=== PATIENT | female | born 1970 | race Caucasian/White ===

== ENCOUNTER 2023-12-20 11:14 | Outpatient (CLI) | payer OTHER, SELFPAY ==
--- NOTE | ~2023-12-20 | XR_ITS ---
XR chest 2V 12/20/2023 11:45 Indication: Dyspnea Procedure: 2 view chest Comparison: No prior studies for comparison. Findings: Heart size normal. No focal air space disease, pulmonary edema, pleural effusion or suspect ed pneumothorax. Impression: 1: No acute cardiopulmonary disease. Reviewed, dictated and finalized at location L. Impression: 1: No acute cardiopulmonary disease.
== END 2023-12-20 11:15 | disposition home or self-care (01) ==
LOC: CHSIMG 11:25
PROVIDERS: PCP Physician Assistant; Visit Provider Physician Assistant
DX: J20.8 Acute bronchitis due to other specified organisms (principal)
CPT/HCPCS: 71046

== ENCOUNTER 2024-12-28 11:53 | Emergency (ER) | payer OTHER, SELFPAY ==
[2024-12-28] VITALS (22 sets, daily range): BP systolic 132–161; BP diastolic 83–105; PULSE 67–98; RESP 13–21; TEMP 36.3; O2SAT 92–100
--- NOTE | ~2024-12-28 | XR_ITS ---
XR chest 1V portable Ordering provider: Kodak Servin MD History: 54 years Female with . Chest pain x5 days . Comparison: December 20, 2023 FINDINGS: MEDIASTINUM: The cardiac silhouette is not enlarged. LUNGS: No infiltrates, effusions or pneumothorax. OTHER: No free air under the diaphragm. IMPRESSION: No acute cardiopulmonary pathology. Reviewed, dictated and finalized at location A.
--- OUTSIDE RECORDS SUMMARY | 2024-12-28 11:56 | XMS_ITS | Continuity of Care Document ---
Author Organization [facility] Address [address] [place] [address] Phone Care Team Providers Care Hall Worker Name Role Phone Crescencio Russell MD Unavailable Unavailable Advance Directives Directive Yes / No Effective Date File Name No Information Encounters Encounter Description Practice Location Reason(s) For Visit Diagnoses Date Provider Providers Copied on Encounter [facility], [address], [place], [place], [id number], [place] tel:[phone] [facility] No Information Drew Prather. [address], [place], [place], [address], [place]. tel:[phone] Referring Provider: Juju Quiñones, [address], [place], [address]. tel:[phone] Family History Family Member Type Diagnosis Age At Onset No Information Payers Payer name Insurance type Covered republican ID Authoriza lucas(s) MADAI DEUTSCH [id number] Social History Type Description Quantity Date Captured Comments Sex Female Smoking Status No Information Chief Complaint And Reason For Visit No Information Reason For Referral Reason For Referral No Information History Of Present Illness Encounter Date Complaint History Of Prese nt Illness No Information Functional Status Date Functional Assessmen t No Information Instructions Date Instruction Additional Infor mation No Information Assessments Type Assessment Date No Information Patient Care Teams Name Effective Dates (start - stop) Status Members No Information
--- OUTSIDE RECORDS SUMMARY | 2024-12-28 11:56 | XMS_ITS | Encounter Summary ---
Author Organization [facility] Address [address] [place] [address] Care Team Providers Care Hog Confinement System Manager Name Role Phone Crescencio Saavedra Primary Care Provider [phone] Encounter Details Date Type Department Care Team (Late st Contact Info) Description 03/01/2019 Abstract SFL CONVERSION [address] [place] [address] , Generic Conversion, Social History Tobacco Use Types Packs/Day Years Used Date Smoking Tobacco: Never Assessed Comments Unknown Sex and Gender Information Value Date Recorded Sex Assigned at Not on file 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
--- OUTSIDE RECORDS SUMMARY | 2024-12-28 11:56 | XMS_ITS | Clinical Summary ---
Author Organization [facility] Address [address] [place] [address] Care Team Providers Care Leisure Studies Professor Name Role Phone Crescencio Saavedra Primary Care Provider [phone] Allergies Active Allergy Reactions Criticality Noted Date Comments Penicillins GI Bleed 04/13/2021 Sulfa Antibiotics Rash Low 04/13/2021 Citrullus Vulgaris Rash Low 04/13/2021 Medications FLUoxetine 10 MG tablet Take 1 tablet (10 mg total) by mouth daily. Active omeprazole 20 MG capsule Take 1 capsule (20 mg total) by mouth daily. Active budesonide-formoter ol 160-4.5 MCG/ACT inhaler Inhale 2 puffs into the lungs 2 (two) times daily. Active lisinopril 20 MG tablet Take 1 tablet (20 mg total) by mouth daily. 0 Active ibuprofen 800 MG tablet TAKE 1 TABLET BY MOUTH THREE TIMES A DAY FOR 30 DAYS 0 Active ondansetron 4 MG disintegrating tablet Take 1 tablet (4 mg total) by mouth every 8 (eight) hours as needed for Nausea. 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 Gender Identity Not on file Sexual Orientation Not on file Last Filed Vital Signs Vital Sign Reading Time Taken Comments Blood Pressure 173/114 07/28/2024 11:23 AM GRAVE DIGGER Pulse 96 07/28/2024 11:23 AM GRAVE DIGGER Temperature 36.9 C (98.5 F) 07/28/2024 10:41 AM GRAVE DIGGER Respiratory Rate 18 07/28/2024 11:23 AM GRAVE DIGGER Oxygen Saturation 96% 07/28/2024 11:23 AM GRAVE DIGGER Inhaled Oxygen Concentration - - Weight 51.3 kg (113 lb) 07/28/2024 10:41 AM GRAVE DIGGER Height 154.9 cm (5' 1 ) 07/28/2024 10:41 AM GRAVE DIGGER Body Mass Index 21.35 07/28/2024 10:41 AM GRAVE DIGGER Plan of Treatment Health Maintenance Due Date Last Done Comments Cervical Cancer Screening Pa p Smear (Age 30 to 64) Every 3 Years 1968 Colorectal Cancer Screening Colonoscopy (10 Years) 1968 Annual Physical 1971 Pneumococcal Vaccine: Pediat rics (0 to 5 Years) and At-Risk Patients (6 to 64 Years) (1 of 2 - PCV) 1974 Hepatitis C 1986 DTaP, Tdap and Td Vaccines ( 1 - Tdap) 1987 Hepatitis B Vaccines (1 of 3 - 19+ 3-dose series) 1987 Cervical Cancer Screening Pa p with HPV Testing (Age 30 to 64) Every 5 Years 1998 Cervical Cancer Screening with HPV 1998 Mammogram Screening 2008 Zoster Vaccines (1 of 2) 2018 COVID-19 Vaccine (2 - 2023-2 5 season) 2024 12/17/2020 Meningococcal B Vaccine Aged Out No l onger eligible based on patient's age to complete this topic Meningococcal Vaccine Aged Out No elaine cornell eligible based on patient's age to complete this topic RSV Immunizations Under 20 Months Aged Out No longer eligible based on patient's age to complete this topic Insurance NORMA Care Teams Leisure Studies Professor Relationship Specialty Start Date End Date Crescencio Saavedra PA [address] [place] [address] PCP - General PHYSICIAN MILLING MACHINE TENDER 06/12/19
--- NOTE | 2024-12-28 12:02 | ECG_ITS ---
Test Date: 2024-12-28 11:58:16 Measurements Intervals [place] Rate: 93 P: 59 WV: 127 QRS: 67 QRSD: 90 T: 72 QT: 356 QTc: 444 Interpretive Statements SINUS RHYTHM POSSIBLE LEFT ATRIAL ENLARGEMENT BORDERLINE R WAVE PROGRESSION, ANTERIOR LEADS BORDERLINE T WAVE ABNORMALITY- ANTERIOR LEADS BASELINE ARTIFACT- I, II, III, AVR, AVL, AVF BORDERLINE ECG No previous ECG available for comparison Electronically Signed On 12-29-2024 06:23:32 CDT by Deep Elaine D.O.
--- NOTE | 2024-12-28 12:03 | ED_ITS ---
HPI - Chest Pain General Chief Complaint: Chest Pain Stated Complaint: chest pain Time Seen by Provider: 12/28/24 12:01 Source: patient and family Mode of arrival: ambulatory Limitations: no limitations History of Present Illness HPI narrative: patient is a 54-year-old female with left-sided chest pain that radiates to the left arm for the past 5 days. 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 She said it hurts when she moves the arms. There is also other aches and pains such as lower back pain and headache and neck pains but they have been going on for a while. She has significant fatigue over the past few months. chest pain comes and goes over the past 5 days. It is sharp pain. MD complaint: chest pain Pertinent past history: other ( Hypertension, hyperlipidemia, GERD) Onset (ago): day(s) ( 5) Timing of current episode: episodic Prior episodes: No Onset: during rest and during exertion Pain location: substernal and left chest Pain radiation: left arm, back ( Lower back) and neck ( cervical neck pains) Severity: moderate Pain scale (0-10): 4 Quality: tightness and sharp Relieving factors: nothing Exacerbating factors: palpation, movement and stress Context: other ( patient having progressively worse left-sided chest pain that radiates to the left arm after she started doing laundry services with her job) Associated symptoms: other ( fatigue, multiple aches and pains) Treatment prior to arrival: none Risk Factors Coronary artery disease risk factors: smoking history, hyperlipidemia and hypertension Thoracic aortic dissection risk factors: none Related Data On Oral Contraceptives: No Allergies Allergy/AdvReac Type Severity Reaction Status Date / Time Penicillins Allergy Intermediate Vomiting Verified 12/28/24 12:05 watermelon AdvReac Intermediate Vomiting Uncoded 12/28/24 12:05 Review of Systems 2 Review of Systems: All systems reviewed & are unremarkable except as noted in HPI and below Constitutional: Constitutional: Reports no additional constitutional complaints Eyes: Eyes: Reports no additional eye complaints ENT: Reports system reviewed and no additional complaints, except as documented Cardiovascular: Cardiovascular: Reports no additional cardiovascular complaints Respiratory: Respiratory: Reports no additional respiratory complaints Gastrointestinal: Gastrointestinal: Reports no additional gastrointestinal complaints Genitourinary: Genitourinary: Reports no additional female genitourinary complaints Musculoskeletal: Musculoskeletal: Reports no additional musculoskeletal complaints Integumentary/Breasts: Skin/Breast: Reports system reviewed and no additional complaints, except as docu Neurologic: Reports system reviewed and no additional complaints, except as documented Psychiatric: Psychiatric: Reports no additional psychiatric complaints Endocrine: Endocrine: Reports no additional endocrine complaints Hematologic/Lymphatic: Hematologic/Lymphatic: Reports no additional hematologic/lymphatic complaints Allergic/Immunologic: Allergic/Immunologic: Reports no additional allergic/immunologic complaints Exam 2 Const: General: healthy appearing Nutritional Appearance: well nourished Orientation/consciousness: patient oriented x3 Limitations: no limitations HENMT: Head: normal to inspection Ears: external ears normal F oracio/Nose/Sinus: Normal external nose present Eyes: Conjunctivae: conjunctivae normal Pupils: Equal, round and reactive pupils present EOM: EOMs intact bilaterally Neck: Neck: normal visual inspection Chest: Chest palpation & inspection: normal inspection of the chest, normal inspection of the chest, tenderness and No Pacemaker present Resp: Effort & Inspection: normal respiratory effort, not labored and no retractions Auscultation: clear to auscultation bilaterally, no crackles and no rales Cardio: Rate: regular rate, not bradycardic and not tachycardic Rhythm: r egular rhythm and regular rhythm Heart sounds: no murmurs GI: Inspection: non-distended GI Palp: Yes Soft to palpation and No Tenderness to palpation present (GI) Auscultation: normal bowel sounds : General: Yes bladder normal to palpation Back/Spine/Pelvis: Back: no CVA tenderness Skin: General skin exam: normal color Rashes: no rashes Wounds: no wounds Neuro: General: patient oriented x3 and moves all extremities Cranial nerves: Yes Nystagmus not present Speech: normal speech Gait exam (Neuro): Normal gait present Extrem: General: normal to inspection Psych: Mental Status: mental status grossly normal Affect: normal affect Attitude: cooperative Course Vital Signs Vital signs: Vital Signs Pulse Rate 93 12/28/24 11:53 Oxygen Delivery Room Air 12/28/24 11:53 Temperature 36.3 C L 12/28/24 12:00 Pulse Rate 78 12/28/24 14:01 Respiratory Rate 15 12/28/24 14:01 Blood Pressure 148/93 H 12/28/24 14:00 Pulse Oximetry 97 12/28/24 14:01 Oxygen Delivery Room Air 12/28/24 12:00 MDM - Chest Pain MDM Narrative Medical decision making narrative: 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 Associated fatigue. We will do a cardiac workup at this time. Lab Data Attestation: I reviewed the patient's lab results. 12/28/24 11:57 12/28/24 11:57 Labs: Lab Results 12/28/24 12/28/24 12/28/24 Range/Units 11:57 12:03 14:06 WBC 6.9 (4.8-10.8) K/mm3 RBC 4.71 (4.20-5.40) M/mm3 Hgb 15.4 H (12.0-15.0) g/dL Hct 44.7 (35.0-49.0) % MCV 94.9 (78.0-102.0) fL MCH 32.7 H (27.0-31.0) pg MCHC 34.5 (32-36) g/dL RDW 12.2 (11.6-14.4) % Plt Count 188 (150-420) K/mm3 MPV 9.1 L (9.2-11.8) fl Immature Gran % (Auto) 0.3 H (0.0-0.0) % Neut % (Auto) 52.6 (50.0-70.0) % Lymph % (Auto) 38.5 (18.0-42.0) % Moody % (Auto) 6.4 (2.0-11.0) % Eos % (Auto) 1.3 (1.0-6.0) % Baso % (Auto) 0.9 (0.0-1.0) % Lymph # (Auto) 2.64 (1.10-4.50) K/mm3 Moody # (Auto) 0.44 (0.10-0.90) K/mm3 Eos # (Auto) 0.09 (0.02-0.50) K/mm3 Baso # (Auto) 0.06 (0.00-0.10) K/mm3 Abs Immat Gran (auto) 0.02 H (0.00-0.00) K/mm3 Absolute Neuts (auto) 3.61 (1.70-7.20) K/mm3 Absolute Nucleated RBC 0.00 (0.00-0.00) K/mm3 Nucleated RBC % 0.0 (0-0.0) % PT 10.6 (9.50-12.1) Seconds INR 1.0 APTT 27.4 (23.9-30.70) Sec D-Dimer 0.19 (0.19-0.50) mg/L Sodium 138 (136-145) mmol/L Potassium 3.6 (3.5-5.1) mmol/L Chloride 103 (98-108) mmol/L Carbon Dioxide 25 (21-32) mmol/L Anion Gap 10 (4-12) mmol/L BUN 14 (7-18) mg/dL Creatinine 1.01 (0.55-1.02) mg/dL Estim Creat Clear Calc 41 ml/min Estimated GFR 57 L (59 - ) Glucose 101 H (70-99) mg/dL Calculated Osmolality 286 (285-295) mOsm/kg Calcium 8.8 (8.5-10.1) mg/dL Total Bilirubin 0.6 (0.00-1.00) mg/dL AST 15 (15-37) U/L ALT 18 (14-59) U/L Alkaline Phosphatase 81 (46-116) U/L Troponin I 4.2 6.5 (0.00-60.4) ng/L NT-Pro-B Natriuret Pep 36 (0-125) pg/mL Total Protein 7.8 (6.4-8.2) g/dL Albumin 3.9 (3.4-5.0) g/dL Lipase 31 (16-77) U/L Urine Color Yellow (Yellow) Urine Appearance Sl cloudy A (Clear) Urine pH 5.5 (5.0-8.0) Ur Specific Petty >= 1.030 H (1.010-1.020) Urine Protein Trace H (Negative) Urine Glucose (UA) Negative (Negative) Urine Ketones Trace H (Negative) Ur Blood (Man) Negative (Negative) Urine Nitrate Negative (Negative) Urine Bilirubin 1+ H (Negative) Urine Urobilinogen 1.0 (0.2-1.0) mg/dL Leukocyte Esterase Rfl Negative (Negative) JOSE/UL Ur Squamous Epith Cells Many H (Few) /hpf Amorphous Sediment Few H (None) Urine Bacteria 1+ H (None) /hpf Urine Mucus Heavy H /lpf Imaging Data Attestation: I personally reviewed and interpreted this imaging study as follows: ECG Data EKG #1: Attestation: I personally reviewed and interpreted this ECG as follows: ECG completion date: 12/28/24 ECG completion time: 12:16 EKG Interpretation: normal rate, sinus rhythm, no ectopy, no ST changes, normal QRS, normal QT and NL axis Discharge Plan Discharge Clinical Impression: Atypical chest pain Patient Disposition: Home, Self-Care Condition: Improved Instructions: Chest Pain (ED), Costochondritis (ED), Chest Wall Pain (ED) Additional Instructions: Please follow-up with the primary doctor in the next week. I suggest referral to a multimedia authoring specialist for further outpatient workup. Come back to the ER for any worsening situation. Patient Language: Slovak Prescriptions: New methylprednisolone [Medrol (Graeme)] 4 mg tablets,dose pack See Rx Instructions .ROUTE .COMPLEX Qty: 21 0RF Rx Instructions: orally per package directions Follow-up/Referrals: Keri,ROSA Resendiz [Primary Care Provider] - Time of Disposition: 14:15
[2024-12-28 12:11] LABS: Basophils Absolute Auto 0.06 K/mm3 (0.00-0.10); Basophils Percent Auto 0.9 % (0.0-1.0); Eosinophils Absolute Auto 0.09 K/mm3 (0.02-0.50); Eosinophils Percent Auto 1.3 % (1.0-6.0); Hematocrit 44.7 % (35.0-49.0); Hemoglobin 15.4 g/dL (12.0-15.0); Immature Granulocyte Absolute 0.02 K/mm3 (0.00-0.00); Immature Granulocyte Percent A 0.3 % (0.0-0.0); Lymphocytes Absolute Auto 2.64 K/mm3 (1.10-4.50); Lymphocytes Percent Auto 38.5 % (18.0-42.0); Mean Corpuscular HGB Conc 34.5 g/dL (32-36); Mean Corpuscular Hemoglobin 32.7 pg (27.0-31.0); Mean Corpuscular Volume 94.9 fL (78.0-102.0); Mean Platelet Volume 9.1 fl (9.2-11.8); Monocytes Absolute Auto 0.44 K/mm3 (0.10-0.90); Monocytes Percent Auto 6.4 % (2.0-11.0); Neutrophils Absolute Auto 3.61 K/mm3 (1.70-7.20); Neutrophils Percent Auto 52.6 % (50.0-70.0); Platelet Count Result 188 K/mm3 (150-420); Red Blood Count 4.71 M/mm3 (4.20-5.40); Red Cell Distribution Width 12.2 % (11.6-14.4); White Blood Count 6.9 K/mm3 (4.8-10.8)
[2024-12-28 12:20] LABS: D Dimer 0.19 mg/L (0.19-0.50); Partial Thromboplastin Time 27.4 Sec (23.9-30.70); Prothrombin Time 10.6 Seconds (9.50-12.1)
[2024-12-28 12:21] LABS: Add Urine Microscopic? YES; Bilirubin Urine 1+ (Negative); Blood Urine Negative (Negative); Color Urine Yellow (Yellow); Glucose Urine UA Negative (Negative); Ketones Urine Trace (Negative); Leukocyte Esterase Ur Negative LEU/UL (Negative); Nitrate Urine Negative (Negative); Protein Urine Trace (Negative); Specific Grav Ur >= 1.030 (1.010-1.020); pH Urine 5.5 (5.0-8.0)
--- OUTSIDE RECORDS SUMMARY | 2024-12-28 12:24 | XMS_ITS | Continuity of Care Document ---
Author Organization [facility] Address [address] [place] [address] Phone Care Team Providers Care Director Institution Name Role Phone Crescencio Russell MD Unavailable Unavailable Advance Directives Directive Yes / No Effective Date File Name No Information Encounters Encounter Description Practice Location Reason(s) For Visit Diagnoses Date Provider Providers Copied on Encounter [facility], [address], [place], [place], [id number], [place] tel:[phone] [facility] No Information Drew Prather. [address], [place], [place], [id number], [place]. tel:[phone] Referring Provider: Juju Quiñones, [address], [place], [address]. tel:[phone] Family History Family Member Type Diagnosis Age At Onset No Information Payers Payer name Insurance type Covered republican ID Authoriza lucas(s) MADAI DEUTSCH [id number] Social History Type Description Quantity Date Captured [...]
--- OUTSIDE RECORDS SUMMARY | 2024-12-28 12:24 | XMS_ITS | Clinical Summary ---
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 Gender Identity Not on file Sexual Orientation Not on file Last Filed Vital Signs Vital Sign Reading Time Taken Comments Blood Pressure 173/114 07/28/2024 11:23 AM FINANCIAL ENGINEER Pulse 96 07/28/2024 11:23 AM FINANCIAL ENGINEER Temperature 36.9 C (98.5 F) 07/28/2024 10:41 AM FINANCIAL ENGINEER Respiratory Rate 18 07/28/2024 11:23 AM FINANCIAL ENGINEER Oxygen Saturation 96% 07/28/2024 11:23 AM FINANCIAL ENGINEER Inhaled Oxygen Concentration - - Weight 51.3 kg (113 lb) 07/28/2024 10:41 AM FINANCIAL ENGINEER Height 154.9 cm (5' 1 ) 07/28/2024 10:41 AM FINANCIAL ENGINEER Body Mass Index 21.35 07/28/2024 10:41 AM FINANCIAL ENGINEER Plan of Treatment Health Maintenance Due Date [...] complete this topic Insurance NORMA Care Teams Insurance Sales Representative Relationship Specialty Start Date End Date Crescencio Saavedra PA [address] [place] [address] PCP - General PHYSICIAN SHAPER OPERATOR 06/12/19
--- OUTSIDE RECORDS SUMMARY | 2024-12-28 12:24 | XMS_ITS | Encounter Summary ---
Author Organization [facility] Address [address] [place] [address] Care Team Providers Care Zoogler Name Role Phone Crescencio Saavedra Primary Care Provider [phone] Encounter Details Date Type Department Care Team (Late st Contact Info) Description 03/01/2019 Abstract SFL CONVERSION [address] [place] [address] , Generic Conversion, Social History Tobacco Use Types Packs/Day Years Used Date Smoking Tobacco: Never Assessed Comments Unknown Sex and Gender Information Value Date Recorded Sex Assigned at Not on file 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
[2024-12-28 12:28] LABS: Alanine Aminotransferase 18 U/L (14-59); Albumin Level 3.9 g/dL (3.4-5.0); Alkaline Phosphatase 81 U/L (46-116); Anion Gap 10 mmol/L (4-12); Aspartate Amino Transferase 15 U/L (15-37); Bilirubin,Total 0.6 mg/dL (0.00-1.00); Blood Urea Nitrogen 14 mg/dL (7-18); Calcium 8.8 mg/dL (8.5-10.1); Carbon Dioxide 25 mmol/L (21-32); Chloride 103 mmol/L (98-108); Estimated CRCL calculation 41 ml/min; Estimated Glomerular Filt Rate 57; Glucose 101 mg/dL (70-99); Lipase 31 U/L (16-77); NT Pro B Type Natriuretic Pept 36 pg/mL (0-125); Osmolality Calculated 286 mOsm/kg (285-295); Potassium 3.6 mmol/L (3.5-5.1); Sodium 138 mmol/L (136-145); Total Protein 7.8 g/dL (6.4-8.2); Troponin I 4.2 ng/L (0.00-60.4)
[2024-12-28 12:30] LABS: Appearance Urine Sl Cloudy (Clear); Squamous Epithelial Cell Urine Many /hpf (Few)
[2024-12-28 12:31] LABS: Amorphous Sediment Urine Few; Bacteria Urine 1+ /hpf; Mucus Urine Heavy /lpf
[2024-12-28 14:26] LABS: Troponin I 6.5 ng/L (0.00-60.4)
[2024-12-28] MEDS: predniSONE 20 MG TABLET 40 MG PO (14:36)
== END 2024-12-28 14:41 | disposition home or self-care (01) ==
PROVIDERS: Emergency Provider Emergency Medicine; PCP Physician Assistant
DX: R07.89 Other chest pain (principal); E78.5 Hyperlipidemia, unspecified; I10 Essential (primary) hypertension
CPT/HCPCS: 36415; 71045; 80053; 81001; 83690; 83880; 84484; 85025; 85380; 85610; 85730; 93005; 99284; J7512